=== PATIENT | male | born 1995 | race African-American/Black ===

== ENCOUNTER 2018-03-23 23:34 | Emergency (ER) | payer SELFPAY ==
[~2018-03-23] VITALS: Ht 177.8 cm; Wt 81.6 kg
[2018-03-24] MEDS ORDERED: IBUPROFEN 400 MG TABLET PO ONE (00:30)
[2018-03-24] MEDS ORDERED: diphenhydrAMINE HCL 25 MG CAPSULE PO ONE (00:30)
[2018-03-24] MEDS ORDERED: diphenhydrAMINE HCL 25 MG CAPSULE ONE (00:33)
[2018-03-24] MEDS ORDERED: IBUPROFEN 400 MG TABLET ONE (00:34)
[2018-03-24 00:38] VITALS: BP 131/74
== END 2018-03-24 00:39 | disposition home or self-care (01) ==
LOC: ER 23:39
DX: M79.672 Pain in left foot (principal); M79.671 Pain in right foot; H61.23 Impacted cerumen, bilateral; F17.200 Nicotine dependence, unspecified, uncomplicated; Z11.3 Encounter for screening for infections with a predominantly sexual mode of transmission; Z60.2 Problems related to living alone
CPT/HCPCS: 82962-TC; 87491; 87591; Q0163

== ENCOUNTER 2019-10-18 19:54 | Emergency (ER) | payer MEDICAID ==
[~2019-10-18] VITALS: Ht 177.8 cm; Wt 81.6 kg
--- NOTE | 2019-10-18 20:00 | NUR ---
PT CAME TO THE ED C/O GENERALIZED ABD PAIN X 1 WEEK +N/V/D. PT STATES " I LOST MY SENSE OF SMELL AND TASTE". PT ENDORSES SOB SATTING 100% ON RA. PT AAOX4, RESPIRATIONS EVEN AND UNLABORED ON RA W/ NAD NOTED. PT CONNECTED TO THE MONITOR AND POX
[2019-10-18] MEDS ORDERED: IV NS 0.9% 1,000 ML IV ONE (20:16)
[2019-10-18 20:52] LABS: EOSINOPHILS % (AUTO) 0.1 % (0.0-6.0); MEAN CORPUSCULAR HGB CONC 32 g/dl (31.0-36.0); MONOCYTES # (AUTO) 0.9 /CMM (0.1-1.30); WHITE BLOOD COUNT (AUTO) 5.8 K/uL (4.3-11.0)
--- NOTE | 2019-10-18 20:53 | NUR ---
BLOOD COLLECTED AND SENT TO LAB
[2019-10-18 20:54] LABS: BASOPHILS % (AUTO) 0.4 % (0.0-2.0); HEMATOCRIT 49 % (39-51); HEMOGLOBIN 15.9 g/dL (13.5-17.5); LYMPHOCYTES # (AUTO) 1.4 /CMM (0.8-4.8); LYMPHOCYTES % (AUTO) 24.9 % (20.0-44.0); MEAN CORPUSCULAR VOLUME 81 fL (80-96); MONOCYTES % (AUTO) 15.2 % (2.0-12.0); NEUTROPHILS # (AUTO) 3.5 /CMM (1.8-8.9); NEUTROPHILS % (AUTO) 59.4 % (43.0-81.0); PLATELET COUNT (AUTO) 185 /CMM (150-450); RED BLOOD CELL COUNT(AUTO) 6.12 MIL/uL (4.5-6.0)
[2019-10-18 21:07] LABS: CALCIUM, SERUM 9.8 mg/dL (8.5-10.1); CARBON DIOXIDE 22 mmol/L (21-32); CHLORIDE 100 mmol/L (98-107); GLUCOSE 94 mg/dL (74-106); POTASSIUM 3.8 mmol/L (3.5-5.1); SODIUM SERUM 137 mmol/L (136-145); UREA NITROGEN, BLOOD 21 mg/dL (7-18)
[2019-10-18 21:25] LABS: ALANINE AMINOTRANSFERASE 56 U/L (12-78); ALBUMIN 4.4 g/dL (3.4-5.0); ALKALINE PHOSPHATASE 59 U/L (46-116); ASPARTATE AMINOTRANSFERASE 82 U/L (15-37); B-TYPE NATRIURETIC PEPTIDE 41 PG/ML (0-125); BILIRUBIN,TOTAL 1.1 mg/dL (0.2-1.0); TOTAL PROTEIN, SERUM 8.4 g/dL (6.4-8.2)
[2019-10-18 21:52] LABS: EOSINOPHILS % (MANUAL) 1 % (0-4); LYMPHOCYTES % (MANUAL) 29 % (16-48); MONOCYTES % (MANUAL) 11 % (0-11.0); NEUTROPHILS % (MANUAL) 59 (42-76)
[2019-10-18 22:19] VITALS: BP 132/89
--- NOTE | 2019-10-18 22:20 | NUR ---
Patient discharged to home in stable condition. Written and verbal after care instructions given. Patient verbalizes understanding of instruction.IV removed. Catheter intact and site benign. Pressure and 4x4 applied to site. No bleeding noted.pt. ambulatory with a steady gait
[2019-10-18 22:29] LABS: D-DIMER 0.73 mg/L(FEU (0.17-0.50)
[2019-10-18 23:04] LABS: C-REACTIVE PROTEIN 3.5 mg/dL (0.0-0.9); CREATINE KINASE, TOTAL 2022 U/L (39-308); FERRITIN 652 ng/mL (8-388)
== END 2019-10-18 22:20 | disposition home or self-care (01) ==
LOC: ER 19:58
DX: A08.4 Viral intestinal infection, unspecified (principal); R19.7 Diarrhea, unspecified; F17.200 Nicotine dependence, unspecified, uncomplicated; Z60.2 Problems related to living alone
CPT/HCPCS: 36415; 71045; 80053; 82550; 82728; 83605; 83615; 83880; 84145; 84484; 85025; 85378; 85385; 85730; 86140; 87040 ×2; 93005; 96360; 99285; J7030

== ENCOUNTER 2021-06-30 13:11 | Emergency (ER) | payer MEDICAID ==
[~2021-06-30] VITALS: Ht 177.8 cm; Wt 88.5 kg
[2021-06-30 13:15] VITALS: BP 116/60
--- NOTE | 2021-06-30 13:16 | NUR ---
BIBS FOR C/O LEFT ANKLE PAIN 09/26 ,S/F 1 HR AGO. NO APPARENT DEFORMITY NOTED. WILL CONTINUE TO MONITOR THE PATIENT.
[2021-06-30] MEDS ORDERED: IBUPROFEN 600 MG TABLET PO ONE (13:30)
[2021-06-30] MEDS ORDERED: IBUPROFEN 600 MG TABLET ONE (13:32)
[2021-06-30] MEDS ORDERED: IBUP-1955 PO (13:40)
--- NOTE | 2021-06-30 13:52 | NUR ---
Patient discharged to home in stable condition. Written and verbal after care instructions given. Patient verbalizes understanding of instruction.
[2021-06-30] MEDS ORDERED: BACITRACIN ZINC OINT PACKET 1 EA PACKET TP ONE (14:00)
== END 2021-06-30 13:54 | disposition home or self-care (01) ==
LOC: ER 13:19
DX: S90.02XA Contusion of left ankle, initial encounter (principal); S93.402A Sprain of unspecified ligament of left ankle, initial encounter; F17.200 Nicotine dependence, unspecified, uncomplicated; Z60.2 Problems related to living alone; Z79.1 Long term (current) use of non-steroidal anti-inflammatories (NSAID); W22.8XXA Striking against or struck by other objects, initial encounter; Y93.01 Activity, walking, marching and hiking; Y92.89 Other specified places as the place of occurrence of the external cause; Y99.8 Other external cause status
CPT/HCPCS: 73610-TC